=== PATIENT | female | born 1960 | race Caucasian/White ===

== ENCOUNTER 2020-07-20 15:56 | Outpatient (REF) | payer OTHER, SELFPAY ==
[2020-07-20 18:34] LABS: Free T4 (Free Thyroxine) 0.97 ng/dL (0.71-1.85); Thyroid Stimulating Hormone 2.35 mIU/mL (0.32-4.0)
== END 2020-07-20 15:57 | disposition home or self-care (01) ==
LOC: HO.MANLDS 15:56
PROVIDERS: PCP Physician Assistant; Visit Provider Physician Assistant
DX: E03.9 Hypothyroidism, unspecified (principal)
CPT/HCPCS: 84439; 84443

== ENCOUNTER 2020-09-19 07:51 | Outpatient (REF) | payer OTHER, SELFPAY | END 2020-09-19 07:52 | disposition home or self-care (01) | LOC: HO.LAB 07:51 | PROVIDERS: PCP Internal Medicine; Visit Provider Internal Medicine | DX: Z20.828 Contact with and (suspected) exposure to other viral communicable diseases (principal) | CPT/HCPCS: C9803; U0003 ==

== ENCOUNTER 2021-07-31 12:59 | Emergency (ER) | payer OTHER, SELFPAY ==
--- NOTE | ~2021-07-31 | CT_ITS ---
EXAMINATION: NONCONTRAST HEAD CT NONCONTRAST MAXILLOFACIAL CT NONCONTRAST CERVICAL SPINE CT INDICATION INFORMATION: Fall COMPARISON: None TECHNIQUE: Separate noncontrast CT examinations of the head, maxillofacial bones, and cervical spine were performed. Coronal and sagittal images were created for each examination at the technologist workstation. This CT examination was performed using dose optimization techniques as appropriate, variously including the following: *Automated exposure control *Adjustment of mA and/or kV according to patient size (this includes techniques or standardized protocols for targeted exams where dose is matched to indication/reason for exam; i.e. extremities or head) *Use of iterative reconstruction technique DLP: 1325 mGy-cm FINDINGS: Head: There is no evidence of acute intracranial hemorrhage or territorial infarction. No abnormal mass effect or midline shift is seen. Taylor to white matter differentiation is well preserved. No extra-axial fluid collections are identified. No hydrocephalus. No significant volume loss. There is no abnormal attenuation within the brain parenchyma. No acute soft tissue abnormality. No calvarial fracture. The right mastoid air cells are well aerated. Partial left mastoid air cell effusion. Maxillofacial: There is prominent left periorbital soft tissue swelling/hematoma. This extends over the left frontal region. No acute maxillofacial fracture. The pterygoid plates are intact. The lamina papyracea are intact. The zygomatic arches are intact. The nasal bone is intact. The orbital rims are intact. Postsurgical appearance of the paranasal sinuses. Mild mucoperiosteal thickening throughout. Midline nasal septum. The mandibular heads are well-seated in the condylar fossa. The orbits demonstrate a normal appearance bilaterally. The globes are intact, and there are no suspicious findings to suggest retrobulbar hemorrhage. Cervical spine: Anterior cervical fusion hardware in place at C6-C7. Hardware is intact with appropriate alignment. There is anatomic alignment of the vertebral bodies and posterior elements. The atlantoaxial and atlantooccipital articulations are intact. Vertebral body heights are maintained. There is multilevel intervertebral disc space narrowing with endplate osteophyte formation and facet arthropathy. No evidence of acute fracture. No prevertebral soft tissue swelling. Visualized portions of the lung apices are unremarkable. The thyroid gland is unremarkable. CT/CT cervical spine wo con IMPRESSION: 1. No acute intracranial finding. 2. No acute maxillofacial fracture. Prominent left periorbital hematoma. 3. No acute fracture or malalignment of the cervical spine. Intact fusion hardware of C6-C7. Degenerative changes of the spine.
[2021-07-31 13:21] VITALS: BP 180/98; PULSE 76; RESP 18; TEMP 36.8; O2SAT 99; BMI 26.2
--- NOTE | 2021-07-31 13:33 | ED_ITS ---
HPI - Fall General Chief Complaint: Fall Stated Complaint: Fall Time Seen by Provider: 07/31/21 13:31 Source: patient Mode of arrival: ambulatory Limitations: no limitations History of Present Illness complaint: fall Onset (ago): minute(s) Fall from: standing Fall witnessed: yes, by bystander Place fall occurred: street Loss of consciousness: none Prolonged down time: no Symptoms prior to fall: none Context: tripped/slipped Location of injury: head, face and other (L thumb small cut) Severity: moderate Quality: dull and aching Associated symptoms (after fall): other (bruises on face) Related Data Previous Rx's Medication Instructions Recorded cyclobenzaprine 10 mg tablet 10 mg PO TID PRN #14 tab 07/31/21 hydrocodone 5 mg-acetaminophen 325 1 tab PO Q6H PRN #10 tab 07/31/21 mg tablet ondansetron 4 mg disintegrating 4 mg PO Q8H PRN #20 tab 07/31/21 tablet Allergies Allergy/AdvReac Type Severity Reaction Status Date / Time No Known Allergies Allergy Unverified 06/16/20 15:05 [No Known Allergies*] Review of Systems Review of Systems: Constitutional : No Fever, No Chills ENT/Mouth : No Ear Pain, No Hoarseness, No sore throat, pos facial abrasions and bruising Eyes: No Eye Pain, No Swelling, No Redness, No Foreign Body Cardiovascular : No Chest Pain, No SOB Respiratory : No Cough, No Dyspnea Gastrointestinal : No Nausea, No Vomiting, No Diarrhea, No abdominal Pain Genitourinary : No Dysuria, No Hematuria Musculoskeletal : no joint pain, No Myalgias, No Joint Swelling Skin : No Skin lacerations, No rash Neuro : No Weakness, No Numbness, No Loss of Consciousness, No Dizziness, No Headache Psych : No Anxiety/Panic, No Depression Heme/Lymph: no easy bruising, no Lymphadenopathy Endocrine : No Polyuria, No Polydipsia All other systems reviewed and are negative [facility] Past Medical History Attestation statement: The following information was validated with the patient. Medical History Atelectasis of left lung Bleeding acute gastric ulcer Depression FH: total knee replacement Hypothyroid Iron deficiency Surgical History H/O lumpectomy Social History Social History (Updated 07/31/21 @ 13:51 by Velia Salvador DO) Patient Tobacco Use Status: Never used Tobacco Advance Directives: No Advance Directives Information Provided: Yes Patient : No Physical Exam Vital Signs: Vital Signs: Last Vital Signs Temp 98.1 F 07/31/21 15:34 Pulse 61 07/31/21 15:34 Resp 14 07/31/21 15:34 BP 150/73 H 07/31/21 15:34 Pulse Ox 98 07/31/21 15:34 Body Mass Index 26.2 Appearance: Alert. Oriented X3. No acute distress. Eyes: Pupils equal, round and reactive to light. ENT: L nares dried blood no septal hematoma, large contusion L eyebrow, brusing and abrasions on L forehead and L chin/nose area, EOMi Neck: Normal inspection. Neck supple. CVS: Normal heart rate and rhythm. Pulses normal. Respiratory: No respiratory distress. Breath sounds normal. Abdomen: Soft and nontender. Skin: Skin warm and dry. Normal skin color. Normal skin turgor. Extremities: No lower extremity edema. L thumb near medial nail fold dried blood but full ROM and no swelling Neuro: Oriented X 3. No motor deficit. No sensory deficit. Course Course Course Narrative: GCS 15 stable for DC no vomiting MDM - Fall MDM Narrative Medical decision making narrative: 60 yo female with no sig PMH takes a baby ASA only comes in with mechanical fall no LOC struck head - has decent L facial contusions will obtain CT head/facial bones/CT cspine given her degree of swelling will also check her plts. She was recently seen at urgent care for L ankle swelling and told she had gout (normal uric lab) at that time - given this will obtain lyme test as well. Lab Data Result diagrams: 07/31/21 13:41 Labs: Lab Results 07/31/21 Range/Units 13:41 WBC 7.3 (4.8-10.8) X10*3/uL RBC 4.58 (4.20-5.50) X10*6/uL Hgb 13.9 (12.0-16.0) g/dl Hct 42.6 (37.0-47.0) % MCV 93.0 (80.0-98.0) fL MCH 30.3 (27.0-33.0) pg MCHC 32.6 (31.0-35.0) g/dl RDW 12.5 (11.0-16.0) % Plt Count 231 (160-400) X10*3/uL MPV 11.0 (9.4-12.3) fL Immature Gran % (Auto) 0.3 (0.0-0.4) % Neut % (Auto) 45.6 (45-73) % Lymph % (Auto) 37.2 (20-40) % [place] % (Auto) 6.2 (2-11) % Eos % (Auto) 9.6 H (0-4) % Baso % (Auto) 1.1 (0-2) % Lymph # (Auto) 2.7 (1.2-4.9) X10*3/uL [place] # (Auto) 0.5 (0.1-1.2) X10*3/uL Eos # (Auto) 0.7 H (0.0-0.4) X10*3/uL Baso # (Auto) 0.1 (0.0-0.2) X10*3/uL Abs Immat Gran (auto) 0.02 (0.00-0.03) X10*3/uL Absolute Neuts (auto) 3.32 (2.0-8.3) x10*3/uL Absolute Nucleated RBC 0.000 (0.0-0.012) X10*3/uL Nucleated RBC % (auto) 0.0 (0.0-0.2) /100WBC Discharge Plan Discharge Clinical Impression: Contusion of periorbital region Qualifiers: Encounter type: initial encounter Laterality: left Qualified Code(s): S05.12XA - Contusion of eyeball and orbital tissues, left eye, initial encounter Fall Qualifiers: Encounter type: initial encounter Qualified Code(s): W19.XXXA - Unspecified fall, initial encounter Abrasion of face Qualifiers: Encounter type: initial encounter Qualified Code(s): S00.81XA - Abrasion of other part of head, initial encounter Patient Disposition: Home, Self-Care Instructions: Head Injury (ED), Contusion in Adults (ED), Abrasion (ED), Fall Prevention (ED) Additional Instructions: return to ED for any worsening symptoms or concerns bacitracin to wounds twice a day DO NOT TAKE ANYTHING BUT TYLENOL AND NAUSEA MEDICATION TONIGHT 1. No acute intracranial finding. 2. No acute maxillofacial fracture. Prominent left periorbital hematoma. 3. No acute fracture or malalignment of the cervical spine. Intact fusion hardware of C6-C7. Degenerative changes of the spine. Prescriptions: New cyclobenzaprine 10 mg tablet 10 mg PO TID PRN (Reason: muscle spasm) Qty: 14 RF: 0 hydrocodone-acetaminophen 5-325 mg tablet 1 tab PO Q6H PRN (Reason: pain) Qty: 10 RF: 0 ondansetron 4 mg tablet,disintegrating 4 mg PO Q8H PRN (Reason: nausea and vomiting) Qty: 20 RF: 0 Stand Alone Forms: Work/School Release Interventions: ED Discharge Assessment Last Done: 07/31/21 15:34 Discharge Date/Time: 07/31/21 15:48
[2021-07-31 13:45] LABS: MANUAL DIFF FLAG NO
[2021-07-31 13:49] LABS: Basophils Absolute Auto 0.1 X10*3/uL (0.0-0.2); Basophils Percent Auto 1.1 % (0-2); Eosinophils Absolute Auto 0.7 X10*3/uL (0.0-0.4); Eosinophils Percent Auto 9.6 % (0-4); Hematocrit 42.6 % (37.0-47.0); Hemoglobin 13.9 g/dl (12.0-16.0); Imm Gran Abs Auto 0.02 X10*3/uL (0.00-0.03); Imm Gran Pct Auto 0.3 % (0.0-0.4); Lymphocytes Absolute Auto 2.7 X10*3/uL (1.2-4.9); Lymphocytes Percent Auto 37.2 % (20-40); Mean Corpuscular HGB Conc 32.6 g/dl (31.0-35.0); Mean Corpuscular Hemoglobin 30.3 pg (27.0-33.0); Monocytes Absolute Auto 0.5 X10*3/uL (0.1-1.2); Monocytes Percent Auto 6.2 % (2-11); Neutrophils Absolute Auto 3.32 x10*3/uL (2.0-8.3); Neutrophils Percent Auto 45.6 % (45-73); Platelet Count 231 X10*3/uL (160-400); Red Blood Count 4.58 X10*6/uL (4.20-5.50); Red Cell Distribution Width 12.5 % (11.0-16.0); White Blood Count 7.3 X10*3/uL (4.8-10.8)
[2021-07-31] MEDS: Diphth,Pertus(ACell),Tet Adult 0.5 ML SYRINGE IM (13:50)
[2021-07-31] MEDS: HYDROcodone Bit/Acetam 5/325 TABLET 1 TAB PO (13:50)
[2021-07-31] MEDS: Ondansetron ODT 4 MG TAB.RAPDIS TRANSLINGU (13:50)
--- NOTE | 2021-07-31 13:55 | PC.NURSE ---
labs drawn, pt medicated per order, pt to goto ct scan
[2021-07-31 15:34] VITALS: BP 150/73; PULSE 61; RESP 14; TEMP 36.7; O2SAT 98
[2021-08-01 21:12] LABS: Lyme Abs Screen <0.90 index
== END 2021-07-31 15:48 | disposition home or self-care (01) ==
PROVIDERS: Emergency Provider Emergency Medicine; PCP Internal Medicine
DX: S00.83XA Contusion of other part of head, initial encounter (principal); S05.12XA Contusion of eyeball and orbital tissues, left eye, initial encounter; S00.81XA Abrasion of other part of head, initial encounter; W01.0XXA Fall on same level from slipping, tripping and stumbling without subsequent striking against object, initial encounter; Y93.9 Activity, unspecified; Y92.9 Unspecified place or not applicable; Y99.9 Unspecified external cause status; Z79.82 Long term (current) use of aspirin
CPT/HCPCS: 36415; 70450; 70486; 72125; 85025; 86617; 86618; 90471; 90715; 99284

== ENCOUNTER 2021-08-08 15:52 | Outpatient (REF) | payer OTHER, SELFPAY ==
--- NOTE | ~2021-08-08 | XR_ITS ---
EXAMINATION: XR ANKLE, LEFT CLINICAL INFORMATION: Swelling COMPARISON: None TECHNIQUE: AP, lateral, and mortise views of the left ankle. FINDINGS: Bone alignment is normal. No fracture or dislocation is seen. The ankle mortise is normal. There is lateral soft tissue swelling. There is a small calcaneal spur at the Achilles tendon insertion. XR/XR ankle LT min 3V IMPRESSION: Lateral soft tissue swelling.
== END 2021-08-08 15:53 | disposition home or self-care (01) ==
LOC: HO.XRAY 15:52
PROVIDERS: PCP Internal Medicine; Visit Provider Physician Assistant
DX: M25.472 Effusion, left ankle (principal)
CPT/HCPCS: 73610

== ENCOUNTER 2022-07-24 17:55 | Outpatient (REF) | payer BC, SELFPAY ==
[2022-07-24 18:04] LABS: Appearance Urine Clear; Color Urine Dark Yellow; Glucose Urine UA Negative (Negative); Leukocyte Esterase Urine Moderate (2+) (Negative); Nitrite Urine Positive (Negative); PH 6.5 (5.0-9.0); Specific Gravity - Urine 1.015 (1.005-1.025); UMIC TRIGGER UACC YES; Urine Blood Negative (Negative); Urine Ketones Negative (Negative); Urine Protein Negative (Neg-Trace)
[2022-07-24 18:07] LABS: Bacteria Urine 2+ (None Seen); Hyaline Casts Urine 0-2 /LPF (0-2); RBC Urine 0-2 /HPF (0-2); UACC Culture Trigger YES
== END 2022-07-24 17:56 | disposition home or self-care (01) ==
LOC: HO.LNP 17:55
PROVIDERS: Visit Provider Physician Assistant
DX: R30.0 Dysuria (principal)
CPT/HCPCS: 81001; 87086; 87088; 87186

== ENCOUNTER 2022-09-11 08:17 | Outpatient (REF) | payer BC, SELFPAY ==
[2022-09-11 11:18] LABS: Basophils Percent Auto 0.9 % (0-2); Eosinophils Percent Auto 20.8 % (0-4); Hematocrit 44.8 % (37.0-47.0); Hemoglobin 14.8 g/dl (12.0-16.0); Lymphocytes Absolute Auto 1.8 X10*3/uL (1.2-4.9); MANUAL DIFF FLAG SCAN; Mean Corpuscular Volume 90.9 fL (80.0-98.0); Mean Platelet Volume 11.4 fL (9.4-12.3); Monocytes Absolute Auto 0.7 X10*3/uL (0.1-1.2); Monocytes Percent Auto 14.5 % (2-11); Neutrophils Absolute Auto 1.1 x10*3/uL (2.0-8.3); Neutrophils Percent Auto 24.8 % (45-73); Platelet Count 199 X10*3/uL (160-400); Red Blood Count 4.93 X10*6/uL (4.20-5.50); Red Cell Distribution Width 12.9 % (11.0-16.0); SCAN SMEAR FLAG 1; White Blood Count 4.6 X10*3/uL (4.8-10.8)
[2022-09-11 12:14] LABS: SLIDE REVIEW VERIFIED
[2022-09-11 13:25] LABS: Alanine Aminotransferase 40 U/L (0-31); Albumin Level 3.7 g/dL (3.5-5.0); Alkaline Phosphatase 77 U/L (39-117); Anion Gap 11 (12-20); Aspartate Amino Transferase 34 U/L (5-31); Bilirubin Total 0.4 mg/dL (0.0-1.0); Blood Urea Nitrogen 18 mg/dL (9-16); Calcium 9.1 mg/dL (8.4-10.2); Carbon Dioxide 27 mmol/L (22-29); Chloride 109 mmol/L (96-108); Cholesterol 211 mg/dL; Estimated Glomerular Filt Rate > 60; Glucose Random 94 mg/dL (60-115); HDL Cholesterol 55 mg/dL; LDL Cholesterol Calculated 138 mg/dl; Potassium 4.2 mmol/L (3.3-5.1); Sodium 143 mmol/L (135-145); Thyroid Stimulating Hormone 3.41 uIU/mL (0.32-4.0); Triglycerides 92 mg/dL; Vitamin D 25-OH Total 35.2 ng/mL (>30)
== END 2022-09-11 08:18 | disposition home or self-care (01) ==
LOC: HO.MANLDS 08:17
PROVIDERS: Visit Provider Internal Medicine
DX: Z00.00 Encounter for general adult medical examination without abnormal findings (principal)
CPT/HCPCS: 36415; 80053; 80061; 82306; 84443; 85025

== ENCOUNTER 2023-09-09 06:23 | Day surgery (SDC) | payer BC, SELFPAY ==
[2023-09-05 15:12] VITALS: BMI 28.1
--- NOTE | 2023-09-06 10:09 | P.CONAN_ITS ---
Documented by User: Chel Aguilar NP 09/06/23 10:10 HPI - Anesthesia Eval Consult details Narrative: 62yo F for [facility] Past Medical History Medical History (Updated 09/05/23 @ 15:08 by Mago Granda RN) Melanoma Fatty liver HTN (hypertension) COPD (chronic obstructive pulmonary disease) Asthma Breast cancer Migraine Atelectasis of left lung FH: total knee replacement Depression Bleeding acute gastric ulcer Iron deficiency Hypothyroid Surgical History Surgical History (Updated 09/05/23 @ 15:08 by Mago Granda, GEE) History of total left knee replacement H/O colonoscopy Hx of tubal ligation History of lumpectomy of both breasts H/O lumpectomy Social History Social History (Updated 07/31/21 @ 13:51 by Verónica Salvador DO) Patient Tobacco Use Status: Never used Tobacco Use of substances other than those prescribed or required for medical reasons: No Are you DNR?: No Advance Directives: No Advance Directives Information Provided: Yes Meds Allergies Allergy/AdvReac Type Severity Reaction Status Date / Time No Known Allergies Allergy Unverified 06/16/20 15:05 [No Known Allergies*] Home Medications Medication Instructions Recorded Confirmed Last Taken Type ferrous sulfate 325 mg (65 mg 325 mg PO DAILY 09/05/23 09/05/23 Unknown History iron) tablet fluoxetine 20 mg capsule 20 mg PO DAILY 09/05/23 09/05/23 Unknown History fluticasone propionate 220 2 puff inhalation BID 09/05/23 09/05/23 Unknown History mcg/actuation HFA aerosol inhaler (Flovent HFA) levothyroxine 75 mcg tablet 75 mcg PO DAILY 09/05/23 09/05/23 Unknown History omeprazole 20 mg capsule,delayed 20 mg PO DAILY 09/05/23 09/05/23 Unknown History release Exam Height,Weight and Vital Signs: Height 5 ft 5.25 in Weight 77.111 kg Assessment and Plan Assessment Anesthesia Assessment: Chart Reviewed Documented by User: Lisa Esparza MD 09/09/23 07:22 [facility] Past Medical History Medical History (Updated 09/05/23 @ 15:08 by Mago Granda, RN) Melanoma Fatty liver HTN (hypertension) COPD (chronic obstructive pulmonary disease) Asthma Breast cancer Migraine Atelectasis of left lung FH: total knee replacement Depression Bleeding acute gastric ulcer Iron deficiency Hypothyroid Family History Family history of problems with anesthesia: No Surgical History Surgical History (Updated 09/05/23 @ 15:08 by Mago Granda, RN) History of total left knee replacement H/O colonoscopy Hx of tubal ligation History of lumpectomy of both breasts H/O lumpectomy History of Problems with Anesthesia: No Social History Social History (Updated 07/31/21 @ 13:51 by Verónica Salvador DO) Patient Tobacco Use Status: Never used Tobacco Use of substances other than those prescribed or required for medical reasons: No Are you DNR?: No Advance Directives: No Advance Directives Information Provided: Yes Meds Allergies Allergy/AdvReac Type Severity Reaction Status Date / Time No Known Allergies Allergy Unverified 06/16/20 15:05 [No Known Allergies*] Home Medications Medication Instructions Recorded Confirmed Last Taken Type ferrous sulfate 325 mg (65 mg 325 mg PO DAILY 09/05/23 09/05/23 Unknown History iron) tablet fluoxetine 20 mg capsule 20 mg PO DAILY 09/05/23 09/05/23 Unknown History fluticasone propionate 220 2 puff inhalation BID 09/05/23 09/05/23 Unknown History mcg/actuation HFA aerosol inhaler (Flovent HFA) levothyroxine 75 mcg tablet 75 mcg PO DAILY 09/05/23 09/05/23 Unknown History omeprazole 20 mg capsule,delayed 20 mg PO DAILY 09/05/23 09/05/23 Unknown History release Exam Airway Mallampati Class: II TM Dist: >3cm Neck ROM: Full Heart: rrr Lungs: cta Assessment and Plan Assessment Anesthesia Assessment: Anesthesia Plan Discussed Final Anesthetic Review Family History of Problems with Anesthesia: No History of Problems with Anesthesia: No NPO: Yes ASA Class: II Final Preanesthetic Review: No Changes in Pt Med Stat, Meds/Allgs Chart Reviewed and Consent Obtained/Reviewed Patient Risk: Intermediate Procedure Risk: Intermediate Anesthetic Plan Anesthetic Plan: MAC: Disposition: Standard PACU
[2023-09-09 06:43] VITALS: BMI 27.3
[2023-09-09 07:04] VITALS: BP 105/75; PULSE 88; RESP 16; TEMP 35.6; O2SAT 96
[2023-09-09] MEDS: Lactated Ringers 1,000 ML 100 ML IVCONT (07:04)
[2023-09-09 08:25] VITALS: BP 122/61; PULSE 67; RESP 16; TEMP 36.2; O2SAT 96
--- NOTE | 2023-09-09 08:27 | P.BOP_ITS ---
Brief Operative Note Date of Service: 09/09/23 Pre-op diagnosis: Screening Post-op diagnosis: other (Colon polyp) Procedure: Colonoscopy to the cecum and TI with hot snare polypectomy Surgeon: Karan Robert MD Anesthesia: MAC Was an High School Guidance Counselor used for this Procedure?: No Estimated blood loss (mL): 0 Pathology: other (A. Ascending colon polyp) Condition: stable Disposition: PACU
[2023-09-09 08:40] VITALS: BP 137/79; PULSE 69; RESP 16; O2SAT 97
[2023-09-09 08:55] VITALS: BP 148/85; PULSE 64; RESP 16; TEMP 36.2; O2SAT 96
--- NOTE | 2023-09-09 10:06 | OP_ITS ---
DATE OF SERVICE: 09/09/2023 SURGEON: Karan Robert MD INDICATIONS: The patient presents for evaluation of colorectal cancer screening and personal history of tubular adenoma of the colon. Full consent has been obtained from her for this, including risks of bleeding and perforation. PREOPERATIVE DIAGNOSIS: Colorectal cancer screening and personal history of tubular adenoma of the colon. POSTOPERATIVE DIAGNOSIS: PROCEDURE PERFORMED: Colonoscopy to cecum and terminal ileum with hot snare polypectomy x 1. ESTIMATED BLOOD LOSS: COMPLICATIONS: ANESTHESIA: Monitored anesthesia care. ASSISTANTS: SPECIMENS: POSTOPERATIVE DIAGNOSES: Colorectal cancer screening and personal history of tubular adenoma of the colon, colon polyp, diverticulosis and internal hemorrhoids. DESCRIPTION OF PROCEDURE: The patient was placed in the left lateral decubitus position. The digital rectal exam revealed no abnormalities. The Olympus video pediatric colonoscope was entered into the rectum and advanced easily to the cecum. Once in the cecum, I did identify normal-appearing cecal pouch with appendiceal orifice and a normal-appearing ileocecal valve. The terminal ileum was cannulated and appeared normal. Scope was withdrawn back in the colon. The entire cecum and ileocecal valve appeared normal. The scope was slowly withdrawn assessing all mucosal surfaces carefully. Preparation was excellent. In the proximal ascending colon was a flat, but raised approximately 1 cm polyp which was removed by hot snare polypectomy recovered by suction. The polypectomy site appeared clean, without any sign of residual polyp nor bleeding. I did not visualize any other polyps, colitis, nor angiodysplasia. There was a mild amount of sigmoid diverticulosis. In the rectum, scope was retroflexed visualizing internal hemorrhoids, but no other pathology. The rectal mucosa appeared normal. The scope was straightened and withdrawn from the patient. She tolerated the procedure well and was returned to the recovery area in stable condition. IMPRESSION: 1. Colon polyp. 2. Diverticulosis. 3. Internal hemorrhoids. PLAN: The results of the pathology will be checked. I would recommend a repeat colonoscopy in 5 years. She was advised not to use any aspirin and NSAIDs for 1 week. She will otherwise see me on a p.r.n. basis. MD KAHLIL Page/RUBIN / [id number] MTDLissette
== END 2023-09-09 09:40 | disposition home or self-care (01) ==
PROVIDERS: PCP Internal Medicine; Visit Provider Internal Medicine
PROC: 0DJD8ZZ Inspection of Lower Intestinal Tract, Via Natural or Artificial Opening Endoscopic (ICD-10-PCS; CPT 45378; principal; 2023-09-09 07:30)
DX: Z12.11 Encounter for screening for malignant neoplasm of colon (principal); D12.2 Benign neoplasm of ascending colon; K57.30 Diverticulosis of large intestine without perforation or abscess without bleeding; K64.8 Other hemorrhoids; Z86.010 Personal history of colon polyps; I10 Essential (primary) hypertension; J44.9 Chronic obstructive pulmonary disease, unspecified; D50.9 Iron deficiency anemia, unspecified; E03.9 Hypothyroidism, unspecified; K76.0 Fatty (change of) liver, not elsewhere classified; G43.909 Migraine, unspecified, not intractable, without status migrainosus; Z85.3 Personal history of malignant neoplasm of breast; Z87.891 Personal history of nicotine dependence; Z79.899 Other long term (current) drug therapy; R79.89 Other specified abnormal findings of blood chemistry
CPT/HCPCS: 45385; 88305; J2704

== ENCOUNTER 2023-09-19 16:43 | Outpatient (REF) | payer BC, SELFPAY | END 2023-09-19 16:44 | disposition home or self-care (01) | LOC: HO.XRAY 16:43 | PROVIDERS: PCP Internal Medicine; Visit Provider Physician Assistant | DX: J32.9 Chronic sinusitis, unspecified (principal) | CPT/HCPCS: 70220 ==

== ENCOUNTER 2024-01-28 15:24 | Outpatient (REF) | payer BC, SELFPAY ==
--- NOTE | ~2024-01-28 | XR_ITS ---
EXAMINATION: XR LUMBOSACRAL SPINE CLINICAL INFORMATION: Lumbago. COMPARISON: None available. TECHNIQUE: Three views of the lumbosacral spine. FINDINGS: Generalized osteopenia. There are 5 nonrib-bearing lumbar vertebral bodies. Slight leftward curvature. Normal sagittal alignment. Vertebral body heights are maintained. Moderate intervertebral disc space narrowing at L5-S1. Severe facet osteoarthritis at L5-S1. Moderate facet osteoarthritis at L3-L4 and L4-L5. Sacroiliac joints are intact. XR/XR lumbar spine 2-3V IMPRESSION: Moderate degenerative disc disease at L5-S1 with severe facet joint osteoarthritis.
== END 2024-01-28 15:25 | disposition home or self-care (01) ==
LOC: HO.XRAY 15:24
PROVIDERS: PCP Internal Medicine; Visit Provider Internal Medicine
DX: M54.41 Lumbago with sciatica, right side (principal)
CPT/HCPCS: 72100

== ENCOUNTER 2024-07-28 14:40 | Outpatient (REF) | payer BC, SELFPAY ==
--- NOTE | ~2024-07-28 | XR_ITS ---
EXAMINATION: XR RIBS, BILATERAL CLINICAL INFORMATION: Unspecified fall. COMPARISON: None available. TECHNIQUE: 4 views of the chest and bilateral ribs were obtained. FINDINGS: The lungs are well expanded. No focal consolidation. No pleural effusion. Cardiac silhouette is within normal limits. Osseous structures are unremarkable. No displaced rib fracture. XR/XR ribs BI 3V IMPRESSION: No acute abnormality. Electronically signed by: Julio Altamirano MD 08/10/2024 02:24 PM MEENA
== END 2024-07-28 14:41 | disposition home or self-care (01) ==
LOC: HO.XRAY 14:40
PROVIDERS: PCP Internal Medicine; Visit Provider Physician Assistant
DX: Z91.81 History of falling (principal)
CPT/HCPCS: 71110

== ENCOUNTER 2025-06-22 11:33 | Outpatient (REF) | payer OTHER, SELFPAY ==
--- NOTE | ~2025-06-22 | XR_ITS ---
EXAMINATION: XR CHEST CLINICAL INFORMATION: COPD COMPARISON: None available. TECHNIQUE: 2 views of the chest were obtained. FINDINGS: No significant abnormality is noted involving the heart, lungs, mediastinum, bony thorax or soft tissues. Hardware related to ACDF is noted at the cervicothoracic junction. XR/XR chest 2V IMPRESSION: Unremarkable examination. Electronically signed by: Porfirio Shah MD 06/22/2025 12:36 PM EDT
--- OUTSIDE RECORDS SUMMARY | 2025-06-22 14:29 | XMS_ITS | Encounter Summary ---
Author Organization [facility] Address [address] [place] [id number] Phone Care Team Providers Care Bottoming Room Supervisor Name Role Phone Bigshelby, Jemal A DO Unavailable Bigda, Jemal A DO Primary Care Provider [phone] Bigda, Jemal A DO Unavailable Encounter Details Date Type Department Care Team (Late st Contact Info) Description 11/07/2021 Ancillary Orders [facility],Outside Imaging [address] [place] [address] System, Provider Not In, [facility] [address] [address] Social History Tobacco Use Types Packs/Day Years Used Date Smoking Tobacco: Former Cigarettes 1 8 0 11/17/1972 - 11/17/1980 Smokeless Tobacco: Never Alcohol Use Standard Drinks/Week Comments No 0 (1 standard drink = 0.6 oz pur e alcohol) Comments Unknown Sex and Gender Information Value Date Recorded Sex Assigned at Not on file Legal Sex Female 9:47 PM EDT Gender Identity Not on file Sexual Orientation Not on file documented as of this encounter Plan of Treatment Not on file documented as of this encounter Results * XR Lower Extremity Outside (No Interpretation) (08/08/2021 12:00 AM EST) Narrative SYSTEMGENERATED, DOCUMENTATION - 11/07/2021 8:37 AM EST This study is for PACS storage only and not for interpretation. us Provider Not In System PhD IMG OUTSIDE IMAGING W /OUT INTERPRETATION Final Result documented in this encounter Visit Diagnoses Not on filedocumented in this encounter Care Teams Bottoming Room Supervisor Relationship Specialty Start Date End Date Jemal Whitten DO [email or web address] PCP - General 07/16/17 Jemal Whitten DO [email or web address] Historical LMR Provider 07/15/17 EvJemal ryanDO [address] [place] [id number] [email or web address] Insurance Assigned Provider 01/04/24 documented as of this encounter Additional Source Comments The information contained in this document represents components of the legal health record. It is not the complete legal health record.[facility]
--- OUTSIDE RECORDS SUMMARY | 2025-06-22 14:29 | XMS_ITS | Encounter Summary ---
Author Organization [facility] Address [address] [place] [address] Phone Care Team Providers Care Heel Coverer Machine Operator Name Role Phone Jemal Whitten DO Unavailable Yancy Houser SENIOR CLINICAL RESEARCH ASSOCIATE Unavailable [phone] Esteban Szymanski MD Unavailable Trung Fournier DO Unavailable [phone] Steven Whitney MD Unavailable Unavailable Ida Armstrong SENIOR CLINICAL RESEARCH ASSOCIATE Unavailable [phone] Nathan Salazar MD Unavailable [phone] Charley Christianson SENIOR CLINICAL RESEARCH ASSOCIATE Unavailable [phone] Jemal Whitten DO Primary Care Provider [phone] Jemal Whitten DO Unavailable Encounter Details Date Type Department Care Team (Late st Contact Info) Description 09/16/2017 Ancillary Orders [facility], X[address] [address] Hortencia Díaz PA-C [address] [place] [address] Cough Social History Tobacco Use Types Packs/Day Years Used Date Smoking Tobacco: Never Assessed Comments Unknown Sex and Gender Information Value Date Recorded Sex Assigned at Not on file Legal Sex Female 9:47 PM EDT Gender Identity Not on file Sexual Orientation Not on file documented as of this encounter Plan of Treatment Not on file documented as of this encounter Results * XR CHEST PA AND LATERAL 2 VIEWS (09/16/2017 6:01 PM EST) Anatomical Region Laterality Modality Chest Radiographic Jes ging 09/16/2017 6:23 PM EST Impressions 09/16/2017 6:49 PM EST No acute cardiopulmonary abnormality is detected. POS - [id number] Edited by: Janae Orlando on 09/16/2017 6:38 PM Narrative 09/16/2017 6:49 PM EST Multiple prior, most recent February 05, 2017. PA and lateral views of the chest demonstrate heart, lung, and mediastinal contours to be within the range of normal and without worrisome change compared to multiple prior studies. Procedure Note Duncan Payton MD - 09/16/2017 Multiple prior, most recent February 05, 2017. PA and lateral views of thechest demonstrate heart, lung, and mediastinal contours to be within therange of normal and without worrisome change compared to multiple priorstudies. IMPRESSION: No acute cardiopulmonary abnormality is detected. POS - [id number] Edited by: Janae Orlando on 09/16/2017 6:38 PM December Bre PA-C IMG XR CHEST Final Result documented in this encounter Visit Diagnoses Diagnosis Cough Cough documented in this encounter Care Teams Heel Coverer Machine Operator Relationship Specialty Start Date End Date Jemal Whitten DO PCP - General 07/16/17 Jemal Whitten DO Historical LMR Provider 07/15/17 Yancy Houser NP [address] [place] [id number] Historical LMR Provider 07/15/17 2 Esteban Szymanski MD [address] [place] [phone] [email or web address] Historical LMR Provider 07/15/17 10/07/21 Trung Fournier DO [address] [place] [address] [facility], [place] [address] Historical LMR Provider 07/15/17 10/07/21 Steven Whitney MD Historical LMR Provider 07/15/17 10/07/21 Ida Armstrong NP [address] [place] [phone] [email or web address] Historical LMR Provider 07/15/17 2 Nathan Salazar MD [address] [place] [phone] Historical LMR Provider 07/15/17 10/07/21 Charley Christianson NP [address] [place] [phone] Historical LMR Provider 07/15/17 2 Jemal Whitten DO [address] [place] [phone] [email or web address] Insurance Assigned Provider 01/04/24 documented as of this encounter Additional Source Comments The information contained in this document represents components of the legal health record. It is not the complete legal health record.[facility]
--- OUTSIDE RECORDS SUMMARY | 2025-06-22 14:29 | XMS_ITS | Clinical Summary ---
Author Organization [facility] Address [address] [place] [address] Phone Care Team Providers Care Circuit Court Clerk Name Role Phone Jemal Whitten DO Unavailable EvJemal ryan Primary Care Provider [phone] Allergies Active Allergy Reactions Criticality Noted Date Comments Hydrocodone-Acetaminophen Nausea and/or Vomiting Medications SUMAtriptan (IMITREX) 100 MG tablet as directed Orally Active ferrous sulfate (IRON, FERROUS SULFATE,) 325 mg (65 mg umkumiut iron) tablet Take 1 tablet by mouth 2 (two) times a day. Active FLUoxetine (PROZAC) 20 MG capsule Take 1 capsule by mouth every morning. 0 Active omeprazole (PRILOSEC) 20 MG capsule Take 1 capsule by mouth daily. 0 Active albuterol (PROAIR HFA) 90 mcg/actuation inhaler ProAir HFA 90 mcg/actuation aerosol inhaler Active FLOVENT HFA 220 mcg/actuation inhaler Inhale 2 puffs into the lungs 2 (two) times a day. 1 Active levothyroxine (SYNTHROID, LEVOTHROID) 75 MCG tablet levothyroxine 75 mcg tablet TAKE 1 TABLET BY MOUTH EVERY DAY Active colchicine (COLCRYS) 0.6 mg tablet 2 tablets upon receipt of prescription, and in 1 hour take 1 tablet 3 tablet 1 Active Active Problems Problem Noted Date Diagnosed Date Hypnic headache 07/17/2021 Common migraine with intractable migraine 2020 Family history of breast cancer 07/17/2021 Personal history of breast cancer 07/17/2021 Osteoarthritis of knee 07/17/2021 Anxiety 04/06/2019 Nontoxic multinodular goiter 11/17/2018 Assessment & Plan (12/08/2018 5:37 PM EDT): This is a patient who is chemically and clinically euthyroid who has a nontoxic multinodular goiter. The thyroid nodules have not grown significantly over the last 2 years. That pretty much stable. As for the right lobe nodule it is isoechoic but it does have a 3+ vascular flow which is concerning to me but we can continue observing it. As for the left lower pole nodule is hypoechoic and has calcification over the last 2 years it has grown by 43% and for me what is concerning is that is hypoechoic and has calcifications but the vascular flow is 2+ so not very high. Since he has not technically grown by 30% in a years time we can continue observing it. Normally we will follow LISA guidelines that means that after the initial ultrasound we will repeat the ultrasound in a year's time in this case the patient waited 2 years. I think at this point what we should do is wait another 2 years and then after that repeat ultrasound in 3 years then 5 years so we can get back and target with what LISA guidelines recommend. I would not give the patient a follow-up appointment because I recommended that she have her primary care physician repeat an ultrasound in 2 years time and then she can return for follow-up then. We will see if there is any significant growth and consider biopsy if required at that time. Assessment & Plan (11/17/2018 4:25 PM EST): The patient has been reported to have multinodular goiter and her TSH is either elevated or within the reference range so this is consistent with a nontoxic multinodular goiter. She is hypothyroid and is on levothyroxine 100 mcg which she takes inappropriately. This medication is usually taking fasting with water and she should wait 45 minutes before eating. Furthermore she cannot take calcium and iron supplementation within 4 hours of levothyroxine administration because it does bind levothyroxine and prevent absorption and this is possibly why her dose of levothyroxine was increased from 75-100 mcg daily. I will check TSH with reflex free T4. I will also check for Andrés's thyroiditis with TPO antibodies because Andrés's thyroiditis is associated with papillary thyroid carcinoma. I did inform the patient that we should obtain a baseline ultrasound for evaluation of these thyroid nodules. Anything over 1 cm in size usually gets biopsy if he has suspicious ultrasonographic characteristics but if they are under a centimeter we usually just follow them. I did inform her that elevated TSH, single nodules and Andrés's thyroiditis associated with malignancy. I will give the patient a follow-up appointment in 3 weeks time. If the ultrasound is not done by then she should reschedule the appointment. She should do her lab work today in the lab downstairs. Lymphedema of upper arm 06/16/2018 Cervical spondylosis 02/11/2018 Essential hypertension 02/11/2018 Allergic rhinitis 02/11/2018 Gastroesophageal reflux disease 02/11/2018 Hypothyroidism 02/11/2018 Thyroid nodule 02/11/2018 Osteoarthritis 02/11/2018 Malignant melanoma 02/11/2018 Family History Medical History Relation Comments No Known Problems Brother Coronary artery disease Father Cancer Maternal Aunt No Known Problems Maternal Grandfather No Known Problems Maternal Grandmother Cancer Mother Cancer Paternal Aunt No Known Problems Paternal Grandfather No Known Problems Paternal Grandmother Relation Status Comments Brother Alive Father Maternal Aunt Maternal Grandfather Maternal Grandmother Mother Alive Paternal Aunt Paternal Grandfather Paternal Grandmother Social History Tobacco Use Types Packs/Day Years Used Date Smoking Tobacco: Former Cigarettes 1 8 0 11/17/1972 - 11/17/1980 Smokeless Tobacco: Never Alcohol Use Standard Drinks/Week Comments No 0 (1 standard drink = 0.6 oz pur e alcohol) Education Answer Date Recorded Are you interested in more education? Not on alfredo e 01/25/2023 Are you concerned about learning? Not on file 01/25/2023 No 01/25/2023 No 01/25/2023 Digital Access Answer Date Recorded No 02/23/2023 No 02/23/2023 Reliable internet access at home? Not on file 02/23/2023 Device with a working camera? Not on file Comments Unknown Sex and Gender Information Value Date Recorded Sex Assigned at Not on file Legal Sex Female 9:47 PM EDT Gender Identity Not on file Sexual Orientation Not on file Last Filed Vital Signs Vital Sign Reading Time Taken Comments Blood Pressure 174/83 07/17/2021 3:23 PM EDT Pulse 82 07/17/2021 3:23 PM EDT Temperature 36.6 C (97.9 F) 07/17/2021 3:23 PM EDT Respiratory Rate 18 07/17/2021 3:23 PM EDT Oxygen Saturation 97% 07/17/2021 3:23 PM EDT Inhaled Oxygen Concentration - - Weight 72.6 kg (160 lb) 11/02/2021 2:45 PM EST Height 165.1 cm (5' 5 ) 11/02/2021 2:45 PM EST Body Mass Index 26.63 11/02/2021 2:45 PM EST Plan of Treatment Health Maintenance Due Date Last Done Comments BLOOD PRESSURE 1960 DEPRESSION SCREENING 1972 SMOKING Hx and SMOKELESS TOBACCO SCREENING 1973 HEPATITIS C SCREENING 1978 HIV ONE-TIME SCREENING (18-6 5 YEARS) 1978 PNEUMOCOCCAL VACCINES (50+ years) (1 of 2 - PCV) 12/13/1979 MAMMOGRAM 2000 COLOGUARD 2005 COLONOSCOPY 2005 COLORECTAL CANCER SCREENING 2005 FIT TEST 2005 FOBT 2005 SIGMOIDOSCOPY 2005 VIRTUAL COLONOSCOPY 2005 PAP SMEAR 09/19/2018 09/19/2015 TSH LEVEL 11/17/2019 11/17/2018 INFLUENZA VACCINE (#1) 2025 07/20/2023 COVID-19 VACCINE (4 - 2024-2 6 season) 2025 07/25/2021, 01/14/2021, 12/21/2020 LIPID PANEL 09/11/2027 09/11/2022, 09/11/2022 Adult Td,Tdap Booster 07/31/2031 07/31/2021 RSV VACCINE (1 - 1-dose 75+ series) 12/13/2035 ZOSTER VACCINES Completed 09/24/2023, 07/20/2023 HEPATITIS A VACCINES Aged Out No long er eligible based on patient's age to complete this topic HIB VACCINES Aged Out No longer eligi ble based on patient's age to complete this topic MENINGOCOCCAL VACCINES (ACWY) Aged Out No longer eligible based on patient's age to complete this topic MENINGOCOCCAL VACCINES (B) Aged Out N o longer eligible based on patient's age to complete this topic Medical Devices Not on file Procedures Procedure Name Priority Date/Time Associated Diagnosis Comments TSH WITH REFLEX Routine 11/17/2018 4:42 PM EST Nontoxic multinodular goiter from Last 3 Months or Most Recently Relevant to Health Maintenance Results * TSH with reflex (11/17/2018 4:42 PM EST) TSH 1.07 0.27 - 4.20 uIU/mL [facility] Blood 11/17/2018 4:42 PM EST 11/17/2018 4:44 PM EST Albaro Trent DO LAB BLOOD ORDERABLES Final Resul t [facility] [address] [place] [address] from Last 3 Months or Most Recently Relevant to Health Maintenance [place] [address] [place] [address] [place] [address] [place] [address] HMO POS O [place] [address] [place] [address] [facility] Care Teams Circuit Court Clerk Relationship Specialty Start Date End Date Jemal Whitten DO [email or web address] PCP - General 07/16/17 Jemal Whitten DO Historical LMR Provider 07/15/17 Additional Source Comments The information contained in this document represents components of the legal health record. It is not the complete legal health record.[facility]
--- OUTSIDE RECORDS SUMMARY | 2025-06-22 14:30 | XMS_ITS | Patient Health Record ---
Author Organization [facility] Address [address] [place] [address] Care Team Providers Care Drill Foreman Name Role Phone Jemal Whitten Primary Care Provider Karan Espinoza [phone] Allergies No Known Allergies Reason For Referral No Information Medications Medication SIG (Take, Route, Frequency, Duration) Notes Start Date End Date Status Excedrin Extra Strength 250-250-65 MG 2 tablets Orally Once a day Active Levothyroxine Sodium 75 MCG 1 tablet on an empty stomach in the morning Orally Once a day Active FLUoxetine HCl 20 MG 1 capsule in the mo rning Orally Once a day Active Omeprazole 20 MG 1 capsule Orally Onc e a day Active Iron 325 (65 Fe) MG 1 tablet Orally Once a day Active Flovent HFA 220 MCG/ACT 1 puff Inhalatio n Twice a day Active Immunizations Vaccine Route Administration Date Status Comme nts Influenza Unknown 06/05/2023 Refused Social History Alcohol Screen Question Answer Notes Did you have a drink containing alcohol in the p ast year? No Points 0 Interpretation Negative Section Notes: No smoking nor alcohol No smoking; no sig alcohol No smoking; no sig alcohol Problems Problem Type SNOMED Code ICD Code Onset Dates Problem Status W/U Status Risk Notes Problem 603329041 Encounter for screening for malignant neoplasm of colon (Z12.11) Active confirmed Problem Diverticular disease of colon (369042685) Diverticulosis of large intestine without perforation or abscess without bleeding (K57.30) Active confirmed Problem 709484805 Elevated LFTs (R79.89) Active confirmed Problem 323534587 Elevated liver enzymes (R74.8) Active confirmed Problem 403628773 Hx of adenomatou s colonic polyps (Z86.010) Active confirmed Problem 524959207352455 Pre-procedural examination (Z01.818) Active confirmed Plan Of Treatment Pending Test Test Name Order Date LIVER PROFILE 04/27/2018 IRON + IBC (FE) 04/27/2018 FERRITIN 04/27/2018 CBC w DIFF 04/27/2018 PROTHROMBIN TIME (PT, INR) 04/27/2018 HEPATITIS B, C PROFILE 04/27/2018 [id number] (A1A) 04/27/2018 MITOCHONDRIAL AB 04/27/2018 SMOOTH MUSCLE ANTIBODIES 04/27/2018 FLUOR. ANTINUCLEAR AB SCREEN (EV) 03/31 Pathology 09/09/2023 Future Test Test Name Order Date COLONOSCOPY 12/26/2011 COLONOSCOPY 03/20/2018 COLONOSCOPY 06/05/2023 Insurance Providers Payer Name Payer Address Payer Phone Subscriber Number Group Number Insured Name Patient Relationship to Insured Coverage Start Date Coverage End Date [facility] [employer] PROFESSIONAL CLAIMS [address] [place] [address] [id number] WINDY Wang DIOGO Self - patient is the insured Medical (General) History Medical History History ICD Code PUD with GI Bleed---treated endoscopically, needed transfusions, in the Migraines--uses Fluoxetine Hypothyroidism Pneumothorax Denies [place],DM,CVA,Lung disease,renal dise ase Breast cancer 2012--bilatera l--lumpectomies--on Tamoxifen x 5 years--no chemo nor XRT Asthma/COPD HTN Fatty liver with negative liver workup Screening colonoscopy in 2 with removal of a small tubular adenoma and a negative followup screening colonoscopy in 2018 Surgical History Surgery Date(Month/Year) Pneumothorax BTL Left upper arm melanoma Soft palate for precancerous lesion Lumpectomy, left breast as above Lumpectomy, right breast as above Left knee replacement 2014
== END 2025-06-22 11:34 | disposition home or self-care (01) ==
LOC: HO.XRAY 11:33
PROVIDERS: PCP Internal Medicine; Visit Provider Physician Assistant
DX: J44.1 Chronic obstructive pulmonary disease with (acute) exacerbation (principal)
CPT/HCPCS: 71046

== ENCOUNTER → 2025-06-22 12:17 | Outpatient (BNV) | payer OTHER, SELFPAY | PROVIDERS: PCP Internal Medicine; Visit Provider Radiology Diagnostic Radiology | DX: J44.9 Chronic obstructive pulmonary disease, unspecified (principal) | CPT/HCPCS: 71046 ==

== ENCOUNTER 2025-07-19 09:58 | Outpatient (REF) | payer OTHER, SELFPAY ==
--- OUTSIDE RECORDS SUMMARY | 2025-07-19 11:27 | XMS_ITS | Clinical Summary ---
Author Organization [facility] Address [address] [place] [address] Phone Care Team Providers Care Mva Still Operator Name Role Phone Jemal Whitten DO Unavailable EvJemal ryan Primary Care Provider Allergies Active Allergy Reactions Criticality Noted Date Comments Hydrocodone-Acetaminophen Nausea and/or Vomiting Medications SUMAtriptan (IMITREX) 100 MG tablet as directed Orally Active ferrous sulfate (IRON, FERROUS SULFATE,) 325 mg (65 mg curyung iron) tablet Take 1 tablet by mouth [...] EST) TSH 1.07 0.27 - 4.20 uIU/mL [facility] Blood 11/17/2018 4:42 PM EST 11/17/2018 4:44 PM EST Albaro Trent DO LAB BLOOD ORDERABLES Final Resul t [facility] [address] [place] [address] from Last 3 Months or Most Recently Relevant to Health Maintenance [place] [address] [place] [address] [place] [address] [place] [address] HMO POS O [place] [address] [place] [address] [facility]MO [facility] Care Teams Mva Still Operator Relationship Specialty Start Date End Date Jemal Whitten DO PCP - General 07/16/17 Jemal Whitten DO Historical LMR Provider 07/15/17 Additional Source Comments The information contained in this document represents components of the legal health record. It is not the complete legal health record.[facility]
--- OUTSIDE RECORDS SUMMARY | 2025-07-19 11:28 | XMS_ITS | Encounter Summary ---
Author Organization [facility] Address [address] [place] [address] Phone Care Team Providers Care Cement Finisher Helper Name Role Phone Bigshelby, Jemal A DO Unavailable Bigda, Jemal A DO Primary Care Provider [phone] Bigda, Jemal A DO Unavailable Encounter Details Date Type Department Care Team (Late st Contact Info) Description 11/07/2021 Ancillary Orders [facility],Outside Imaging [address] [place] [address] System, Provider Not In, [facility] [address] [address] Social History Tobacco Use Types Packs/Day Years [...] on filedocumented in this encounter Care Teams Cement Finisher Helper Relationship Specialty Start Date End Date Jemal Whitten DO [email or web address] PCP - General 07/16/17 Jemal Whitten DO [email or web address] Historical LMR Provider 07/15/17 EvJemal yranDO [address] [place] [address] [email or web address] Insurance Assigned Provider 01/04/24 documented as of this encounter Additional Source Comments The information contained in this document represents components of the legal health record. It is not the complete legal health record.[facility]
--- OUTSIDE RECORDS SUMMARY | 2025-07-19 11:28 | XMS_ITS | Encounter Summary ---
Author Organization [facility] Address [address] [place] [address] Phone Care Team Providers Care K 9 Handler/ Deputy Name Role Phone Jemal Whitten DO Unavailable Yancy Houser SENIOR TAX MANAGER Unavailable [phone] Esteban Szymanski MD Unavailable [phone] Trung Fournier DO Unavailable [phone] Steven Whitney MD Unavailable Unavailable Ida Armstrnog SENIOR TAX MANAGER Unavailable [phone] Nathan Salazar MD Unavailable [phone] Charley Christiansno SENIOR TAX MANAGER Unavailable [phone] Jemal Whitten DO Primary Care Provider [phone] Jemal Whitten DO Unavailable Encounter Details Date Type Department Care Team (Late st Contact Info) Description 09/16/2017 Ancillary Orders [facility], X-[address] [address] Hortencia Díaz PA-C [address] [place] [address] [email or web address] Cough Social History Tobacco Use Types Packs/Day [...] acute cardiopulmonary abnormality is detected. POS - [id number] Edited by: Janae Orlando on 09/16/2017 6:38 [...] acute cardiopulmonary abnormality is detected. POS - [id number] Edited by: Janae Orlando on 09/16/2017 6:38 PM December Bre PA-C IMG XR CHEST Final Result documented in this encounter Visit Diagnoses Diagnosis Cough Cough documented in this encounter Care Teams K 9 Handler/ Deputy Relationship Specialty Start Date End Date Jemal Whitten DO [email or web address] PCP - General 07/16/17 Jemal Whitten DO [email or web address] Historical LMR Provider 07/15/17 Yancy Houser NP [address] [place] [address] Historical LMR Provider 07/15/17 2 Esteban Szymanski MD [address] [place] [address] [email or web address] Historical LMR Provider 07/15/17 10/07/21 Trung Fournier DO [address] [place] [address] [facility], [place] [address] Historical LMR Provider 07/15/17 10/07/21 Steven Whitney MD Historical LMR Provider 07/15/17 10/07/21 Ida Armstrong NP [address] [place] [address] [email or web address] Historical LMR Provider 07/15/17 2 Nathan Salazar MD [address] [place] [address] Historical LMR Provider 07/15/17 10/07/21 Charley Christianson NP [address] [place] [address] Historical LMR Provider 07/15/17 2 Jemal Whitten DO [address] [place] [address] Insurance Assigned Provider 01/04/24 documented as of this encounter Additional Source Comments The information contained in this document represents components of the legal health record. It is not the complete legal health record.[facility]
--- OUTSIDE RECORDS SUMMARY | 2025-07-19 11:28 | XMS_ITS | Patient Health Record ---
Author Organization [facility] Address [address] [place] [address] Care Team Providers Care Fingernail Sculptor Name Role Phone Jemal Whitten Primary Care Provider Karan Espinoza [phone] Allergies No Known Allergies Reason For Referral [...] Problem Status W/U Status Risk Notes Problem Screening for malignant neoplasm of colon (770645969) Encounter for screening for malignant neoplasm of colon (Z12.11) Active confirmed Problem Diverticular disease of colon (804093415) Diverticulosis of large intestine without perforation or abscess without bleeding (K57.30) Active confirmed Problem Elevated liver enzymes level (838388499) Elevated LFTs (R79.89) Active confirmed Problem Elevated liver enzymes level (713311988) Elevated liver enzymes (R74.8) Active confirmed Problem History of adenomatous polyp of colon (705612581) Hx of adenomatous colonic polyps (Z86.010) Active confirmed Problem Pre-procedure evaluation check (187254939) Pre-procedural examination (Z01.818) Active confirmed Plan Of Treatment Pending Test Test Name Order Date LIVER PROFILE 04/27/2018 IRON + IBC (FE) 04/27/2018 FERRITIN 04/27/2018 CBC w DIFF 04/27/2018 PROTHROMBIN TIME (PT, INR) 04/27/2018 HEPATITIS B, C PROFILE 04/27/2018 [id number] (A1A) 04/27/2018 MITOCHONDRIAL AB 04/27/2018 SMOOTH MUSCLE ANTIBODIES 04/27/2018 FLUOR. ANTINUCLEAR AB SCREEN (EV) 03/31 Pathology 09/09/2023 Future Test Test Name Order Date COLONOSCOPY 12/26/2011 COLONOSCOPY 03/20/2018 COLONOSCOPY 06/05/2023 Insurance Providers Payer Name Payer Address Payer Phone Subscriber Number Group Number Insured Name Patient Relationship to Insured Coverage Start Date Coverage End Date [facility] [employer] PROFESSIONAL CLAIMS [address] [place] [address] [id number] SIMONE MCDANIELCY Self - patient is the insured Medical (General) History Medical History History ICD Code PUD with GI Bleed---treated endoscopically, needed transfusions, in the Migraines--uses Fluoxetine Hypothyroidism Pneumothorax Denies [place],DM,CVA,Lung disease,renal dise ase Breast cancer 2012--bilatera l--lumpectomies--on [...]
[2025-07-19 13:22] LABS: MANUAL DIFF FLAG NO
[2025-07-19 13:33] LABS: Hematocrit 42.0 % (37.0-47.0); Hemoglobin 14.0 g/dl (12.0-16.0); Imm Gran Abs Auto 0.01 X10*3/uL (0.00-0.03); Imm Gran Pct Auto 0.2 % (0.0-0.4); Lymphocytes Absolute Auto 2.3 X10*3/uL (1.2-4.9); Mean Corpuscular HGB Conc 33.3 g/dl (31.0-35.0); Mean Corpuscular Hemoglobin 30.4 pg (27.0-33.0); Mean Corpuscular Volume 91.3 fL (80.0-98.0); NRBC Abs Auto 0.000 X10*3/uL (0.0-0.012); NRBC Pct Auto 0.0 /100WBC (0.0-0.2); Platelet Count 234 X10*3/uL (160-400); Red Blood Count 4.60 X10*6/uL (4.20-5.50); White Blood Count 5.6 X10*3/uL (4.8-10.8)
[2025-07-19 13:53] LABS: Alanine Aminotransferase 17 U/L (0-31); Albumin Level 4.1 g/dL (3.5-5.0); Alkaline Phosphatase 57 U/L (39-117); Anion Gap 14 (12-20); Aspartate Amino Transferase 22 U/L (5-31); Blood Urea Nitrogen 20 mg/dL (9-16); Calcium 9.7 mg/dL (8.4-10.2); Carbon Dioxide 25 mmol/L (22-29); Chloride 105 mmol/L (96-108); Cholesterol 236 mg/dL (<200); Estimated Glomerular Filt Rate > 60; HDL Cholesterol 56 mg/dL (>40); Potassium 4.6 mmol/L (3.3-5.1); Sodium 139 mmol/L (135-145); Total Protein 6.3 g/dL (6.5-8.0); Triglycerides 98 mg/dL (<150)
[2025-07-19 14:39] LABS: Hemoglobin A1C 126.1261 umol/L; Total Hemoglobin (HGBA1C) 3660.8825 umol/L
== END 2025-07-19 09:59 | disposition home or self-care (01) ==
LOC: HO.MANLDS 09:58
PROVIDERS: Visit Provider Physician Assistant
DX: Z00.00 Encounter for general adult medical examination without abnormal findings (principal); Z13.1 Encounter for screening for diabetes mellitus; Z13.220 Encounter for screening for lipoid disorders; E03.9 Hypothyroidism, unspecified
CPT/HCPCS: 36415; 80053; 80061; 83036; 84443; 85025